=== PATIENT | male | born 1955 | race Caucasian/White ===

== ENCOUNTER → 2024-04-15 | Outpatient (REF) | payer MEDICARE ==
[2024-04-15 15:01] LABS: INR 0.97; PROTHROMBIN TIME 13.2 SECONDS (12.5-14.5)
== END ==
LOC: M LAB REF 14:39
PROVIDERS: ATTEND Internal Medicine Nephrology
DX: R31.9 Hematuria, unspecified (principal)

== ENCOUNTER → 2024-05-13 | Outpatient (CLI) | payer MEDICARE ==
[~2024-05-13] MED LIST: ACETAMINOPHEN 325 MG TAB PO PRN; AMLO1TAB24 PO; FLUO-365 PO; GABA-1490 PO; GLUC1CAP10 PO; HYDR25TA87 PO; JENT2.5T5 PO; LABE300T28 PO; LEVO50CA PO; LIDOCAINE 1% MDV 20ML VIAL As Ordered ONE; MIDAZOLAM INJ 2MG/2ML VIAL As Ordered ONE; MULT-90 PO; NS 1,000 ML IV SCH; OMEG10002 PO; OMEP1CAP73 PO; PERCOCET 5MG/325MG TAB PO PRN; SIMV40TA20 PO; TIRZ2.5P SQ; VALS1TAB67 PO; VITA100093 PO; fentaNYL 100 MCG/2 ML INJECTION As Ordered ONE
[2024-05-13 12:30] VITALS: BP 173/83; O2SAT 95
== END ==
LOC: M IRPRO 08:41
PROVIDERS: ATTEND Internal Medicine Nephrology
DX: R80.9 Proteinuria, unspecified (principal)
CPT/HCPCS: 50200; 76942; 88300; 99152; J2250; J3010